=== PATIENT | female | born 1965 | race Caucasian/White ===

== ENCOUNTER 2018-05-22 20:24 | Emergency (ER) | payer BC ==
[~2018-05-22] VITALS: Ht 165.1 cm; Wt 62.5 kg
[2018-05-22 20:28] VITALS: TEMP 36.8; Ht 165.1 cm; Wt 62.5 kg
[2018-05-22] MEDS ORDERED: FENTANYL CITRATE INJ 50 MCG/1 ML 2 ML VIAL IV STA (20:54)
[2018-05-22] MEDS ORDERED: SODIUM CHLORIDE 0.9% 1000ML 1,000 ML IV STA (20:54)
[2018-05-22] MEDS ORDERED: OPTIRAY 320 IV PRN (21:00)
[2018-05-22 21:16] VITALS: O2SAT 98
[2018-05-22 21:23] LABS: BASO % 0.1 %; BASO ABS # 0.01 K/uL (0-0.2); EOS % 0.6 %; EOS ABS # 0.06 K/uL (0-0.5); HEMATOCRIT 43.1 % (37-47); HEMOGLOBIN 14.6 g/dL (12.0-16.0); IG# 0.15 K/uL (0.00-0.02); LYMPH % 20.2 %; LYMPH ABS # 1.89 K/uL (1.2-3.4); MEAN CELL VOLUME 91.9 fL (80-100); MEAN CORPUSCULAR HEMOGLOBIN 31.1 pg (25-34); MEAN CORPUSCULAR HGB CONC 33.9 g/dl (32-36); MEAN PLATELET VOLUME 10.3 fL (7.4-10.4); MONO % 6.2 %; MONO ABS # 0.58 K/uL (0.11-0.59); NEUT % 71.3 %; NEUT ABS # 6.65 K/uL (1.4-6.5); PLATELET COUNT 215 K/uL (130-400); RED CELL DISTRIBUTION WIDTH CV 12.8 % (11.5-14.5); WHITE BLOOD COUNT 9.34 K/uL (4.8-10.8)
[2018-05-22] MEDS ORDERED: CALC-393 PO (21:28)
[2018-05-22] MEDS ORDERED: CHOL1000 PO (21:28)
[2018-05-22] MEDS ORDERED: EFF75 PO (21:28)
[2018-05-22] MEDS ORDERED: FERR1TAB61 PO (21:28)
[2018-05-22] MEDS ORDERED: IBUP-103 PO (21:28)
[2018-05-22 21:33] LABS: PTT PATIENT 23.7 SECONDS (21.0-31.0)
[2018-05-22] MEDS ORDERED: FENTANYL CITRATE INJ 50 MCG/1 ML 2 ML VIAL IV ONE ×2 (21:45→22:15)
[2018-05-22 22:00] LABS: CREATININE 0.78 mg/dl (0.60-1.20); POTASSIUM 4.2 mmol/L (3.5-5.1)
[2018-05-22 22:03] LABS: ALBUMIN 3.9 gm/dl (3.4-5.0); CALCIUM 8.9 mg/dl (8.5-10.1); TOTAL PROTEIN 7.7 gm/dl (6.4-8.2)
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
[2018-05-22] MEDS ORDERED: OXYCODONE/ACETAMINOPHEN 5-325 TAB PO STA (23:38)
[2018-05-23] MEDS ORDERED: KETOROLAC TROMETHAMINE 30 MG/ML VIAL IV STA (00:18)
[2018-05-23] MEDS ORDERED: OXYC-90 PO (00:25)
[2018-05-23] MEDS ORDERED: PERCOCET HOME PACK PO ONE (00:30)
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
[2018-05-23 00:38] VITALS: BP 115/65; PULSE 83; O2SAT 97
== END 2018-05-23 00:39 | disposition home or self-care (01) ==
LOC: EDBD 20:24 → C.EDA 20:32
DX: S22.080A Wedge compression fracture of T11-T12 vertebra, initial encounter for closed fracture (principal); S32.130A Nondisplaced Zone III fracture of sacrum, initial encounter for closed fracture; V19.9XXA Pedal cyclist (driver) (passenger) injured in unspecified traffic accident, initial encounter; Z79.899 Other long term (current) drug therapy; Z88.8 Allergy status to other drugs, medicaments and biological substances